=== PATIENT | male | born 1940 | race Caucasian/White ===

== ENCOUNTER 2016-06-17 14:35 | Emergency (ER) | payer OTHER ==
[~2016-06-17] VITALS: Ht 170.2 cm; Wt 87.6 kg
[~2016-06-17 14:35] MED LIST: ALLOPURINOL100 MG PO; ASPIR-TRIN325 M1 PO; B-12500 MC1 SL; COLACE100 MG PO; DYNAPEN500 MG PO; ECOTRIN325 MG PO; EFFIENT10 MG PO; Effient PO; IMDUR30 MG PO; INTRINSI B12-F1 EACH PO; LIPITOR40 MG PO; LOPRESSOR25 MG PO; METOPROLOL TART25 MG PO; NITROSTAT0.4 MG SL; NORVASC10 MG PO; PRINIVIL20 MG PO; PROTONIX40 MG PO; Tylenol Extra Streng PO; VITAMIN B PO; ZESTRIL20 MG PO; ZOCOR20 MG PO; ZOCOR80 M1 PO; Zestril,Prinivil PO; Zocor PO; Zyloprim PO
[2016-06-17 18:37] LABS: HEMATOCRIT 41.6 % (38.0-50.0); MCH 29.9 PG (29.0-34.0); MCHC 33.7 G/DL (30.0-36.0); MCV 88.7 FL (86-99); MEAN PLAT.VOLUME 11.1 uM^3 (9.0-12.4); RBC DIS.WIDTH-CV 13.2 % (11.8-14.6); RBC DIS.WIDTH-SD 42.5 % (39-53); RED BLOOD COUNT 4.69 M/uL (4.00-5.50)
[2016-06-17 18:38] LABS: PLATELET COUNT 148 K/uL (156-360)
[2016-06-17 18:44] LABS: CHLORIDE 109 mEq/L (99-109); POTASSIUM 4.5 mEq/L (3.7-5.4); SODIUM 141 mEq/L (136-147)
[2016-06-17 18:46] LABS: GLUCOSE 101 mg/dL (70-99)
[2016-06-17 18:47] LABS: ANION GAP 8 MEQ/L (2-14)
[2016-06-17 18:50] LABS: GFR ESTIMATE (CALCULATED) 57 mL/min/
[2016-06-17 18:51] LABS: UREA NITROGEN (BUN) 21 mg/dL (9-23)
[2016-06-17 19:31] VITALS: BP 129/67
== END 2016-06-17 19:37 | disposition home or self-care (01) ==
LOC: EME 14:35
PROVIDERS: Emergency Medicine
DX: S32.110A Nondisplaced Zone I fracture of sacrum, initial encounter for closed fracture (principal); S32.120A Nondisplaced Zone II fracture of sacrum, initial encounter for closed fracture; S32.130A Nondisplaced Zone III fracture of sacrum, initial encounter for closed fracture; S32.591A Other specified fracture of right pubis, initial encounter for closed fracture; W11.XXXA Fall on and from ladder, initial encounter; E78.5 Hyperlipidemia, unspecified; I10 Essential (primary) hypertension; Z87.442 Personal history of urinary calculi; I25.2 Old myocardial infarction; Z98.61 Coronary angioplasty status; Z79.82 Long term (current) use of aspirin
CPT/HCPCS: 72131; 72192; 80048; 85027; 86850; 86900; 86901; 99281; 99285